=== PATIENT | female | born 1975 | race African-American/Black ===

== ENCOUNTER 2024-04-24 06:54 | Day surgery (SDC) | payer OTHER ==
[2024-04-20 10:32] LABS: HEMOGLOBIN 12.2 g/dL (12.0-15.00); MEAN CELL VOLUME 76.9 fL (80.00-100.00); MEAN CORPUSCULAR HEMOGLOBIN 24.7 pg (27.00-32.0); MEAN CORPUSCULAR HGB CONC 32.1 g/dl (32.0-36.0); PLATELET COUNT 366 K/uL (150-450); RED BLOOD COUNT 4.94 M/uL (4.00-6.00); RED CELL DISTRIBUTION WIDTH 18.5 % (11.5-14.5)
[2024-04-20 10:33] LABS: URINE APPEARANCE Clear; URINE BILIRRUBIN Negative (NEGATIVE); URINE BLOOD Moderate; URINE COLOR Yellow; URINE GLUCOSE Negative (NEGATIVE); URINE KETONE Negative (NEGATIVE); URINE LEUKOCYTE Negative; URINE NITRATE Negative; URINE PROTEIN Negative (NEGATIVE); URINE UROBILINOGEN 0.2 E.U./dl
[2024-04-20 10:36] LABS: URINE BACTERIA 1627.7 uL (0.0-1933); URINE EPITHELIAL CELLS 24.8 uL (0.0-38.8); URINE RBC 10.2 uL (0.0-20.8); URINE WBC 12.2 uL (0.0-23.2)
[2024-04-20 10:44] LABS: URINE CAST 0.45 uL (0.0-1.40)
[2024-04-20 11:42] LABS: ALBUMIN 3.7 gm/dL (3.4-5.0); BILIRUBIN TOTAL 0.38 mg/dL (0.3-1.2); CALCIUM 9.5 mg/dL (8.5-10.1); CREATININE SERUM 0.68 mg/dL (0.55-1.02); GFR 93.15; GLOBULINA 4.5 G/DL (2.4-3.5); POTASSIUM 4.52 mEq/L (3.5-5.1); TOTAL PROTEIN 8.2 gm/dL (6.4-8.2)
[2024-04-20 11:50] LABS: INR 0.97; PARTIAL THROMBOPLASTIN TIME 26.5 SECONDS (22.0-34.0); PROTHROMBIN TIME 10.6 SECONDS (9.0-11.5)
[~2024-04-24 06:54] MED LIST: CLARITIN10 MG; JARDIANCE10 MG PO; KETO10TA2 PO; LOSARTAN-HCTZ1 EACH; MEDROLPACK PO; METFORMIN HCL500 MG; MOBIC15 MG PO; ORPH100T PO; ZOCOR20 MG
[2024-04-24] MEDS ORDERED: CEFAZOLIN SODIUM 1,000 MG VIAL IV ONE (13:45)
[2024-04-24] MEDS ORDERED: BUPIVACAINE HCL 30 ML VIAL IJ ONE (13:45)
== END 2024-04-24 16:10 | disposition home or self-care (01) ==
LOC: CIR.AMB 06:54
PROVIDERS: ATTEND Orthopaedic Surgery Hand Surgery
DX: G56.01 Carpal tunnel syndrome, right upper limb (principal); Z91.013 Allergy to seafood; I10 Essential (primary) hypertension; E78.5 Hyperlipidemia, unspecified; E11.9 Type 2 diabetes mellitus without complications; G47.00 Insomnia, unspecified; M79.7 Fibromyalgia